=== PATIENT | female | born 1990 | race Caucasian/White ===

== ENCOUNTER 2018-09-06 12:08 | Emergency (ER) | payer MEDICAID ==
[~2018-09-06] VITALS: Ht 170.2 cm; Wt 67.6 kg
[2018-09-06 12:20] VITALS: Ht 170.2 cm; Wt 67.6 kg
[2018-09-06 14:07] LABS: BASOPHIL % 0.5 % (0-2); PLATELET COUNT 390 x10^3mcL (130-400); RED CELL DISTRIBUTION WIDTH 13.6 % (11.5-14.5)
[2018-09-06 14:17] LABS: ALBUMIN 3.7 g/dL (3.4-5.0); ALKALINE PHOSPHATASE 59 U/L (46-116); ALT/SGPT 26 U/L (14-59); AST/SGOT 18 U/L (15-37); BILIRUBIN TOTAL 1.1 mg/dL (0.20-1.00); CARBON DIOXIDE 27.3 mmol/L (21-32); CHLORIDE SERUM 105 mmol/L (98-107); CHOLESTEROL 147 mg/dL (<200); CREATININE SERUM 0.9 mg/dL (0.6-1.0); GFR1 > 60 mL/min; GLUCOSE SERUM 121 mg/dL (74-106); LIPASE 99 IU/L (73-393); POTASSIUM SERUM 3.5 mmol/L (3.5-5.1); SODIUM SERUM 141 mmol/L (136-145); TOTAL PROTEIN, SERUM 7.4 g/dL (6.4-8.2); TRIGLYCERIDES 73 mg/dL (<150)
[2018-09-06 14:18] LABS: CHOLESTEROL/HDL RATIO 2.1; HDL CHOLESTEROL 69 mg/dL (40-60)
[2018-09-06 14:25] LABS: FREE T4 0.96 ng/dL (0.76-1.46); T4(THYROXINE) 5.2 ug/dL (4.7-13.3)
[2018-09-06 14:40] LABS: CALCIUM 8.8 mg/dL (8.5-10.1)
[2018-09-06 15:34] LABS: T3 TOTAL 1.34 ng/mL
[2018-09-06 16:55] VITALS: BP 128/75
== END 2018-09-06 16:55 | disposition home or self-care (01) ==
LOC: ED 12:08
PROVIDERS: Specialist
DX: F10.239 Alcohol dependence with withdrawal, unspecified (principal); F19.20 Other psychoactive substance dependence, uncomplicated; F12.20 Cannabis dependence, uncomplicated; F17.210 Nicotine dependence, cigarettes, uncomplicated
CPT/HCPCS: 36415; 83880; 84439; J2060